=== PATIENT | female | born 2000 | race Caucasian/White ===

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

== ENCOUNTER 2021-02-20 09:38 | Emergency (ER) | payer BC, MEDICAID ==
[~2021-02-20] VITALS: Ht 160 cm; Wt 44.9 kg
[~2021-02-20 09:38] MED LIST: TRAM-48 PO
[2021-02-20 10:30] VITALS: BP 127/79
[2021-02-20] MEDS ORDERED: diazePAM 2 MG TABLET PO ONE (10:45)
[2021-02-20] MEDS ORDERED: KETOROLAC 30 MG/ML VIAL. IM ONE (10:45)
--- NOTE | 2021-02-20 11:36 | PHYS DOC ---
Past Medical History Past Medical History: Other Additional Past Medical Histor: scoliosis Past Surgical History: No Surgical History Smoking Status: Never Smoker Alcohol Use: None Drug Use: None General Adult EDM: Chief Complaint: BACK PAIN - NO INJURY HPI: HPI: Patient is a 20 year old female with history of scoliosis who presents with low back pain that radiates to the bilateral legs. Pain started when waking up this morning. Had no pain yesterday when going to sleep. No history of recent trauma. Her typical scoliosis discomfort is more in the thoracic spine, this is decidedly different. Denies numbness, tingling, weakness in the legs. Denies saddle anesthesia. No bowel or bladder incontinence or hesitancy. No fevers or chills. No history of previous spinal operations. No IVDU. No immunosuppressive meds. Review of Systems: Review of Systems: Constitutional: Denies fever or chills. [] Eyes: Denies change in visual acuity. [] HENT: Denies nasal congestion or sore throat. [] Respiratory: Denies cough or shortness of breath. [] Cardiovascular: Denies chest pain or edema. [] GI: Denies abdominal pain, nausea, vomiting, bloody stools or diarrhea. [] : Denies dysuria. [] Musculoskeletal: Reports back pain. Denies joint pain. [] Integument: Denies rash. [] Neurologic: Denies focal weakness or sensory changes. [] ] Heart Score: C/O Chest Pain: No Current Medications: Current Medications Medications (Trade) Dose Ordered Sig/[facility] Start Time Stop Time Status Last Admin Dose Admin Diazepam (Valium) 2 mg 1X ONCE 02/20/21 10:45 02/20/21 10:46 DC 02/20/21 10:53 2 MG Ketorolac Tromethamine (Toradol 30mg Vial) 15 mg 1X ONCE 02/20/21 10:45 02/20/21 10:46 DC 02/20/21 10:53 15 MG Allergies: Allergies: Allergies Coded Allergies Type Severity Reaction Last Updated Verified amoxicillin Allergy Intermediate HIVES 12/12/13 Yes Physical Exam: PE: Constitutional: Crying, appears uncomfortable. Normal gait walking into the ED. HENT: Normocephalic, atraumatic, Neck: Normal range of motion, no tenderness, supple, no stridor. [] Cardiovascular:Heart rate regular rhythm, no murmur [] Lungs & Thorax: Normal work of breathing Skin: Warm, dry, no erythema, no rash. [] Back:+ Tenderness in lumbar spine region and paraspinal and midline. No overlying rash. Extremities: No tenderness, no cyanosis, no clubbing, ROM intact, no edema. [] Neurologic: Alert and oriented X 3. Normal gait. 5/5 strength bilaterally in: -Hip flexion -Hip adduction -Knee flexion/extension -Ankle plantar/dorsiflexion -Extension of the great toe Initial exam with hesitancy and poor effort eyes, I suspect due to pain, but after pain control was neurologically intact on exam. Sensation similar bilaterally with ability to sense light touch. [] Psychologic: tearful Current Patient Data: Labs: Laboratory Tests Test 02/20/21 10:52 POC Urine HCG, Qualitative Hcg negative (Negative) Vital Signs: Vital Signs Date Time Temp Pulse Resp B/P (MAP) Pulse Ox O2 Delivery O2 Flow Rate FiO2 02/20/21 10:30 98.1 112 20 127/79 (95) 98 Room Air 98.1 EKG: EKG: [] Radiology/Procedures: Radiology/Procedures: [] Course & Med Decision Making: Course & Med Decision Making Pertinent Labs and Imaging studies reviewed. (See chart for details) Patient a 20-year-old female with history of scoliosis who presents with atraumatic low back pain with radiation to bilateral legs. Initially is tearful, and has poor effort on examination, however after 15 mg IM ketorolac and 2 mg of p.o. diazepam patient was much more comfortable, with an obviously intact neuro exam. No back pain red flags as outlined in HPI. No trauma to suggest need for neuroimaging. Pain is significantly improved on reevaluation. Given return precautions and expectant conservative management. [id number] Francy Disclaimer: Francy Disclaimer: This electronic medical record was generated, in whole or in part, using a voice recognition dictation system. Departure Departure Impression: Primary Impression: Low back pain Disposition: HOME / SELF CARE / HOMELESS Condition: STABLE Referrals: RAJAN GRULLON MD (PCP) Additional Instructions: For pain tylenol and ibuprofen are best used on a schedule. Please alternate between the two. Ibuprofen will likely be more helpful with you back pain. -Tylenol 1000 mg every 6 hours (do not exceed 4000 mg in one day) -Ibuprofen 600 mg every 6 hours. Take with food. Do not take for more than 1 week. If your pain persist for more than a few days please schedule follow-up appoint ment with your primary care doctor, as they may be able to change your medications or consider other treatments such as physical therapy. It is important that you return immediately to the emergency department if you experience: Fever/chills, numbness between your vagina and rectum, inability to start a urine stream, urinary/bowel incontinence, or leg weakness. CARLTON CHAUDHARI MD Feb 20, 2021 11:36
== END 2021-02-20 11:50 | disposition home or self-care (01) ==
LOC: ER 09:38
DX: M54.50 Low back pain, unspecified (principal); M79.604 Pain in right leg; M79.605 Pain in left leg; Z88.1 Allergy status to other antibiotic agents
CPT/HCPCS: 81025; 96372; 99283; J1885